=== PATIENT | female | born 1950 | race Caucasian/White ===

== ENCOUNTER 2020-08-02 12:34 | Outpatient (REF) | payer MEDICARE, SELFPAY | END 2020-08-02 12:35 | disposition home or self-care (01) | LOC: HO.HMGCLDS 12:34 | PROVIDERS: PCP Physician Assistant; Visit Provider Internal Medicine | DX: Z20.828 Contact with and (suspected) exposure to other viral communicable diseases (principal) | CPT/HCPCS: C9803; U0003 ==

== ENCOUNTER 2023-07-14 06:57 | Day surgery (SDC) | payer MEDICARE, SELFPAY ==
[2023-07-10 10:26] VITALS: BMI 21.6
--- NOTE | 2023-07-13 09:22 | P.CONAN_ITS ---
Documented by User: Samantha Azar NP 07/13/23 09:22 HPI - Anesthesia Eval Consult details Narrative: 73yo F for Colonoscopy [facility] Past Medical History Medical History HTN (hypertension) Surgical History Surgical History Hx of ovarian cystectomy H/O colonoscopy Social History Social History Patient Tobacco Use Status: Former Tobacco user Quit Date: >10 years ago Tobacco use type: Cigarette Meds Allergies Allergy/AdvReac Type Severity Reaction Status Date / Time Sulfa (Sulfonamide Allergy Intermediate rash Verified 07/10/23 10:28 Antibiotics) Home Medications Medication Instructions Recorded Confirmed Last Taken Type amlodipine 2.5 mg tablet 2.5 mg PO DAILY 07/10/23 07/10/23 Unknown History Exam Exam Date and Time: July 13, 2023 0922 Height,Weight and Vital Signs: Height 5 ft 2.5 in Weight 54.431 kg Assessment and Plan Assessment Anesthesia Assessment: Chart Reviewed Documented by User: Jeannine Hodges MD 07/14/23 08:06 [facility] Past Medical History Medical History HTN (hypertension) Family History Family history of problems with anesthesia: No Surgical History Surgical History Hx of ovarian cystectomy H/O colonoscopy History of Problems with Anesthesia: No Social History Social History Patient Tobacco Use Status: Former Tobacco user Quit Date: >10 years ago Tobacco use type: Cigarette Meds Allergies Allergy/AdvReac Type Severity Reaction Status Date / Time Sulfa (Sulfonamide Allergy Intermediate rash Verified 07/10/23 10:28 Antibiotics) Home Medications Medication Instructions Recorded Confirmed Last Taken Type amlodipine 2.5 mg tablet 2.5 mg PO DAILY 07/10/23 07/10/23 Unknown History Exam Height,Weight and Vital Signs: Height 5 ft 2.5 in Weight 54.431 kg Vital Signs Temp Pulse Resp BP Pulse Ox O2 Del Method 07/14/23 07:31 97.0 F 77 18 164/76 H 97 Room Air Airway Mallampati Class: II TM Dist: >3cm Neck ROM: Full Loose/Missing/Broken Teeth: No (Denies broken, loose, missing teeth) Heart: RRR Lungs: CTAB Assessment and Plan Assessment Anesthesia Assessment: Anesthesia Plan Discussed Final Anesthetic Review Family History of Problems with Anesthesia: No History of Problems with Anesthesia: No NPO: Yes ASA Class: II Final Preanesthetic Review: No Changes in Pt Med Stat, Meds/Allgs Chart Reviewed, Consent Obtained/Reviewed and Anes Risks/Benef Reviewed Patient Risk: Low Procedure Risk: Low Assessment/Block/Sedation in SS: Assess/Block/Sedation-SS Anesthetic Plan Anesthetic Plan: MAC: Disposition: Standard PACU
[2023-07-14 07:31] VITALS: BP 164/76; PULSE 77; RESP 18; TEMP 36.1; O2SAT 97
--- NOTE | 2023-07-14 07:38 | MHC.SHP ---
Pre-Procedural Eval Section A Date of Service: 07/14/23 Section B Chief Complaint: screening Details of Present Illness: see H&P no changes Relevant Family History (Specify if Yes): No Relevant Social History: None Present Medications: see Short Stay Collaborative assessment Medical History: No relevant PMH History of Previous Operations: No relevant previous surgery Allergies: Allergies Allergy/AdvReac Type Severity Reaction Status Date / Time Sulfa (Sulfonamide Allergy Intermediate rash Verified 07/10/23 10:28 Antibiotics) Review of Systems Sugical H&P ROS: Negative: Constitution, Cardiovascular, Respiratory, Neurological, Psychiatric, Hem-Onc, Allergic/Immunologic, Gastrointestinal, Genitourinary, Musculoskeletal, Integumentary, Endocrine and Eyes/Ears/Nose/Throat Exam Surgical H&P Exam: Normal: HEENT, Normal: Heart, Normal: Lungs, Normal: Extremities, Normal: Abdomen, Normal: Skin and Normal: Neurological Plan Diagnosis/Plan: Unchanged I have reviewed the history and physical and performed a pertinent physical examination on my patient. No changes have occurred unless specified. Time Spent With Patient Time: Total time managing care of this patient today ____ minutes.
--- NOTE | 2023-07-14 08:23 | P.BOP_ITS ---
Brief Operative Note Date of Service: 07/14/23 Pre-op diagnosis: screening Post-op diagnosis: same Procedure: colonoscopy Surgeon: Edwin Díaz MD Anesthesia: MAC Was an Supervisor Belt And Link Assembly used for this Procedure?: No Estimated blood loss (mL): 2 Pathology: other Condition: stable Disposition: PACU
[2023-07-14 08:27] VITALS: BP 105/67; PULSE 72; RESP 25; TEMP 36.5; O2SAT 99
[2023-07-14 08:48] VITALS: BP 130/65; PULSE 63; RESP 18; TEMP 36.5; O2SAT 96
--- NOTE | 2023-07-14 09:00 | OP_ITS ---
DATE OF SERVICE: 07/14/2023 SURGEON: Edwin Díaz MD INDICATIONS: Colon cancer screening. PREOPERATIVE DIAGNOSIS: POSTOPERATIVE DIAGNOSIS: PROCEDURE PERFORMED: Colonoscopy to the cecum with snare polypectomy. ESTIMATED BLOOD LOSS: COMPLICATIONS: ANESTHESIA: Monitored anesthesia care. ASSISTANTS: SPECIMENS: DESCRIPTION OF PROCEDURE: A history and physical performed. The risks and benefits of the procedure were explained to the patient. Informed consent was obtained. The patient was placed in the left lateral decubitus position. A digital rectal exam was performed and was found to be normal. No external fissures were noted. There was a single skin tag in the midline at 6 o'clock. The Olympus pediatric video colonoscope was introduced into the rectum and advanced to the cecum. The cecum was identified by transillumination, palpation, and identification of ileocecal valve. Examination was performed and the scope was removed. She tolerated the procedure well and was taken to recovery room in stable condition. FINDINGS: The terminal ileum was not examined. The visualized colonic mucosa was normal. The quality of the prep was good. No mass, lesions were seen except for a single polyp measuring less than 10 mm in the rectum, which was removed with a cold snare and recovered via suction. There was minimal sigmoid diverticulosis. Retroflexed examination showed some hypertrophic anal papillae and small internal hemorrhoids, but no other lesions. IMPRESSION: Colon polyp. RECOMMENDATION: Follow up the biopsy results. MD CLAUDE Whitley/DOLORES / [id number]
== END 2023-07-14 09:01 | disposition home or self-care (01) ==
PROVIDERS: PCP Nurse Practitioner Family; Visit Provider Internal Medicine Gastroenterology
PROC: 0DJD8ZZ Inspection of Lower Intestinal Tract, Via Natural or Artificial Opening Endoscopic (ICD-10-PCS; CPT 45378; principal; 2023-07-14 08:20)
DX: Z12.11 Encounter for screening for malignant neoplasm of colon (principal); K62.1 Rectal polyp; K57.30 Diverticulosis of large intestine without perforation or abscess without bleeding; K64.8 Other hemorrhoids; K64.4 Residual hemorrhoidal skin tags; K62.89 Other specified diseases of anus and rectum; K62.5 Hemorrhage of anus and rectum; I10 Essential (primary) hypertension; Z87.891 Personal history of nicotine dependence
CPT/HCPCS: 45385; 88305